=== PATIENT | male | born 1945 | race Caucasian/White ===

== ENCOUNTER 2016-07-22 01:18 | Emergency (ER) | payer OTHER, MEDICARE ==
[~2016-07-22] VITALS: Ht 170.2 cm; Wt 77.1 kg
[~2016-07-22 01:18] MED LIST: HYDROCODON-ACETAMINO PO; LABETALOL HYDR200 MG PO; METHOCARBAMOL750 MG PO; SYMBICORT 80/4.1 PUF INH; TRAMADOL50 MG PO; TRAVATAN Z50 GTT/1 B OPH; VALSARTAN80 MG PO; VYTORIN 10 MG-11 TAB PO
--- NOTE | 2016-07-22 01:23 | ED INFLUENZA/URI COMPLAINT ---
History of Present Illness General Chief Complaint: Upper Respiratory Sx/Fever Stated Complaint: COUGH, THINKS SINUSITIS Source: patient Exam Limitations: no limitations Vital Signs & Intake/Output Vital Signs & Intake/Output Vital Signs Date Time Temp Pulse Resp B/P Pulse O2 O2 Flow FiO2 Ox Delivery Rate 07/22 0124 98.0 83 18 110/74 92 Room Air Allergies Coded Allergies: MDX - Cefdinir (From OMNICEF) (Mild, RASH 07/22/16) MDX - Celecoxib (From CELEBREX) (Mild, RASH 07/22/16) Reconcile Medications Albuterol Sulfate (Ventolin Hfa) 90 MCG HFA.AER.AD 2 PUF INH Q4-6 PRN PRN BRONCHITIS/WHEEZING Benzonatate (Tessalon Perle) 100 MG CAPSULE 1 CAP PO TID PRN COUGH Budesonide/Formoterol Fumara (Symbicort 80-4.5 Mcg Inhaler) 80 MCG/4.5 MCG PUF 2 PUFF INH ASTHMA/COPD (Reported) Ezetimibe/Simvastatin (Vytorin 10-10 MG Tablet) 10 MG-10 MG TABLET 1 TAB PO D CHOL (Reported) [HYDROCODON-ACETAMINO] 1-2 TAB PO Q8P PRN PAIN (Reported) LABETALOL HCL (Labetalol Hydrochloride) 200 MG TABLET 1 TAB PO BID BP ( Reported) Levofloxacin (Levaquin) 500 MG TABLET 1 TAB PO DAILY BRONCHITIS Methocarbamol 750 MG TABLET 1 TAB PO TIDPRN MUSCLE RELAXER (Reported) Prednisone 50 MG TABLET 1 TAB PO DAILY BRONCHITIS TRAMADOL HCL (Tramadol) 50 MG TABLET 1 TAB PO TIDPRN PAIN (Reported) Travoprost (Travatan Z Oph Yeny 0.004% 2.5ML) 0.004 % DROPS 1 GTT OPH QPM ? GLAUCOMA (Reported) Valsartan 80 MG TABLET 1 TAB PO D BP (Reported) Triage Nurses Notes Reviewed? yes Onset: Gradual Duration: day(s):, waxing and waning Timing: recent history Severity: moderate Prior Episodes/Possible Cause: occassional episodes Modifying Factors: Improves With: rest. Associated Symptoms: cough, nasal congestion, nasal drainage, sinus infection HPI: 7-year-old gentleman history of sinusitis and asthma, presents with 1 week history of cough wheezing and increased phlegm and increased nasal discharge. He states, "I think I have sinusitis and bronchitis." He has no fever chest pain lightheadedness dyspnea on exertion orthopnea. She is otherwise well and has no other concerns. Past History Travel History Traveled to [place] past 21 day No Medical History Any Pertinent Medical History? see below for history Neurological: NONE EENT: GLAUCOMA? Cardiovascular: hypertension, hyperlipidemia, CARDIAC STENT Respiratory: asthma Gastrointestinal: SBO/RESECTION INGUINAL HERNIA REPAIR Hepatic: NONE Renal: NONE Musculoskeletal: fracture, MULTIPLE SX Psychiatric: NONE Endocrine: NONE Blood Disorders: NONE Cancer(s): NONE PECAN GROWER/Reproductive: NONE Surgical History Surgical History: none Psychosocial History What is your primary language Georgian Tobacco Use: Refused to answer Family History Hx Contributory? No Review of Systems Review of Systems Constitutional: Reports: no symptoms. EENTM: Reports: no symptoms. Respiratory: Reports: no symptoms. Cardiovascular: Reports: no symptoms. GI: Reports: no symptoms. Genitourinary: Reports: no symptoms. Musculoskeletal: Reports: no symptoms. Skin: Reports: no symptoms. Neurological/Psychological: Reports: no symptoms. Hematologic/Endocrine: Reports: no symptoms. Immunologic/Allergic: Reports: no symptoms. All Other Systems: Reviewed and Negative Physical Exam Physical Exam General Appearance: well developed/nourished, mild distress Eyes: Bilateral: normal appearance. Ears, Nose, Throat: normal ENT inspection, nasal congestion, nasal drainage, pharyngeal erythema Neck: normal inspection, supple, full range of motion Respiratory: rhonchi, wheezing Cardiovascular: regular rate/rhythm Gastrointestinal: normal bowel sounds, soft, non-tender, no organomegaly Back: normal inspection, normal range of motion Extremities: normal inspection Neurologic/Psych: no motor/sensory deficits, awake, alert, oriented x 3 Skin: intact, normal color, warm/dry Core Measures Severe Sepsis Present: No Septic Shock Present: No Progress Differential Diagnosis: pharyngitis, sinusitis, bronchitis versus other. Plan of Care: Mr. Mir is well-appearing in the ED with signs and symptoms suggestive of sinusitis with bronchitis. I gave him a prescription for Levaquin and prednisone and albuterol. I counseled him to follow-up with his primary care doctor tomorrow. All of his questions. He was well-appearing and ambulatory in no distress at discharge. Initial ED EKG: none Departure Departure Disposition: HOME OR SELF CARE Condition: Stable Clinical Impression Primary Impression: Sinusitis Secondary Impressions: Bronchitis Referrals: [facility]ENS MD,HAROON Tapia (PCP/Family) Departure Forms: Customer Survey General Discharge Information Prescriptions: Current Visit Scripts Levofloxacin (Levaquin) 1 TAB PO DAILY #7 TAB Albuterol Sulfate (Ventolin Hfa) 2 PUF INH Q4-6 PRN PRN BRONCHITIS/WHEEZING #1 INHAL Prednisone 1 TAB PO DAILY #5 TAB Benzonatate (Tessalon Perle) 1 CAP PO TID PRN COUGH #20 CAP
[2016-07-22 01:24] VITALS: BP 110/74
[2016-07-22] MEDS ORDERED: TESSALON PERLE100 M1 PO (01:34)
[2016-07-22] MEDS ORDERED: PREDNISONE50 M1 PO (01:34)
[2016-07-22] MEDS ORDERED: LEVAQUIN500 M1 PO (01:34)
[2016-07-22] MEDS ORDERED: VENTOLIN HFA18 GM INH (01:34)
== END 2016-07-22 02:01 ==
LOC: ERH 01:18
DX: J32.9 Chronic sinusitis, unspecified (principal); J40 Bronchitis, not specified as acute or chronic